=== PATIENT | female | born 1960 ===

== ENCOUNTER → 2017-03-07 | Outpatient (CLI) | payer OTHER ==
--- NOTE | 2017-03-07 12:14 | WOMENS IMAGING REPORT ---
EXAM DESCRIPTION: BILAT SCREENING MAMMO W/CAD COMPLETED DATE/TIME: 03/07/2017 7:29 am REASON FOR STUDY: ROUTINE BILATERAL SCREENING;Z12.31 Z12.31 ENCNTR SCREEN MAMMOGRAM FOR MALIGNANT N EOPLASM OF AYE COMPARISON: 01/26/2016 and 01/22/2015. TECHNIQUE: Standard craniocaudal and mediolateral oblique views of each breast recorded using digita l acquisition. LIMITATIONS: None. FINDINGS: No masses, calcifications or architectural distortion. No areas of suspicion. Read with the assistance of CAD. .[facility] - R2 Cenova Version 1.3 .[facility] - R2 Cenova Version 1.3 .[facility] - R2 Cenova Version 2.4 .[facility] [place] - R2 Cenova Version 2.4 .[facility] - R2 [place] Guide Version 9.2 IMPRESSION: NORMAL MAMMOGRAM. BIRADS 1. BREAST DENSITY: c. The breasts are heterogeneously dense, which may obscure small masses. BIRAD: 1 NEGATIVE RECOMMENDATION: ROUTINE SCREENING COMMENT: The patient has been notified of the results by letter per SA requirements. Additional no tification policies are in place for contacting patient with suspicious or incomplete findings. Quality ID #[id number]: The [employer] recommends an annual screening mammogram for women aged 40 years or over. This facility utilizes a reminder system to ensure that all patients receive reminder letters, and/or direct phone calls for appointments. This includes reminders for routine scr eening mammograms, diagnostic mammograms, or other Breast Imaging Interventions when appropriate. Th is patient will be placed in the appropriate reminder system. The [employer] (ACR) has developed recommendations for screening MRI of the breast s in certain patient populations, to be used in conjunction with mammography. Breast MRI surveillanc e may be appropriate for women with more than 20% lifetime risk of developing breast cancer as deter mined by genetic testing, significant family history of the disease, or history of mantle radiation f or Hodgkins Disease. ACR Practice Guidelines 2008. TECHNICAL DOCUMENTATION: FINDING NUMBER: (1) ASSESSMENT: (1) JOB ID: [id number] [employer]- All Rights Reserved
== END ==
LOC: WI 07:15
PROVIDERS: ATTEND Internal Medicine
DX: Z12.31 Encounter for screening mammogram for malignant neoplasm of breast (principal)
CPT/HCPCS: 77067; G0202

== ENCOUNTER → 2018-03-18 | Outpatient (CLI) | payer OTHER ==
--- NOTE | 2018-03-19 08:14 | WOMENS IMAGING REPORT ---
EXAM DESCRIPTION: 3D SCREENING MAMMO BILAT COMPLETED DATE/TIME: 03/18/2018 2:48 pm REASON FOR STUDY: Z12.31 3D SCREENING MAMMOGRAM BILATERAL Z12.31 ENCNTR SCREEN MAMMOGRAM FOR MALIGN ANT NEOPLASM OF AYE COMPARISON: 03/07/2017 and 01/26/2016. TECHNIQUE: Standard craniocaudal and mediolateral oblique views of each breast recorded using digita l acquisition and breast tomosynthesis. LIMITATIONS: None. FINDINGS: No masses, calcifications or architectural distortion. No areas of suspicion. Read with the assistance of CAD. .[facility] - R2 Cenova Version 1.3 .[facility] - R2 Cenova Version 1.3 .[facility] - R2 Cenova Version 2.4 .[facility] [place] [place] - R2 Cenova Version 2.4 .[facility] - R2 Director Of Group Counseling Program Version 9.2 IMPRESSION: NORMAL MAMMOGRAM. BIRADS 1. BREAST DENSITY: b. There are scattered areas of fibroglandular density. BIRAD: 1 NEGATIVE RECOMMENDATION: ROUTINE SCREENING COMMENT: The patient has been notified of the results by letter per SA requirements. Additional no tification policies are in place for contacting patient with suspicious or incomplete findings. Quality ID #[id number]: The [employer] recommends an annual screening mammogram for women aged 40 years or over. This facility utilizes a reminder system to ensure that all patients receive reminder letters, and/or direct phone calls for appointments. This includes reminders for routine scr eening mammograms, diagnostic mammograms, or other Breast Imaging Interventions when appropriate. Th is patient will be placed in the appropriate reminder system. The [employer] (ACR) has developed recommendations for screening MRI of the breast s in certain patient populations, to be used in conjunction with mammography. Breast MRI surveillanc e may be appropriate for women with more than 20% lifetime risk of developing breast cancer as deter mined by genetic testing, significant family history of the disease, or history of mantle radiation f or Hodgkins Disease. ACR Practice Guidelines 2008. DBT Technology DBT is a type of tomographic mammography. With conventional mammography, overlapping breast tissue ma y make lesions difficult to detect, even with good compression. DBT uses an x-ray tube that rotates a round the breast, taking images at different angles. These images are then combined to create thin sl ices of the breast that the radiologist can view as a 3D reconstruction. The [employer] unit can perform full-field digital mammograms (2D imaging); or DBT (3D imaging); or both, in a combination mode that quickly performs both the mammogram and the tomosynthesis scan while the breast is still compressed. PQRS 6045F: Fluoroscopic imaging is not utilized for breast tomosynthesis. TECHNICAL DOCUMENTATION: FINDING NUMBER: (1) ASSESSMENT: (1) JOB ID: [id number] [employer]- All Rights Reserved Reading location - IP/workstation name: [email or web address]
== END ==
LOC: WI 14:34
PROVIDERS: ATTEND Internal Medicine
DX: Z12.31 Encounter for screening mammogram for malignant neoplasm of breast (principal)
CPT/HCPCS: 77063; 77067

== ENCOUNTER → 2019-03-31 | Outpatient (CLI) | payer OTHER ==
--- NOTE | 2019-03-31 11:45 | WOMENS IMAGING REPORT ---
EXAM DESCRIPTION: 3D SCREENING MAMMO BILAT COMPLETED DATE/TIME: 03/31/2019 8:21 am REASON FOR STUDY: Z12.31 SCREENING MAMMO Z12.31 ENCNTR SCREEN MAMMOGRAM FOR MALIGNANT NEOPLASM OF B RE COMPARISON: Multiple since 2014 EXAM PARAMETERS: Views: Standard craniocaudal and mediolateral oblique views of each breast recorded using digital acquisition and breast tomosynthesis. Read with the assistance of CAD. .[facility] - [employer] Driver/Supervisor Version 9.2 LIMITATIONS: None. FINDINGS: No suspicious masses, suspicious calcifications or architectural distortion. No areas of c oncern. IMPRESSION: NEGATIVE MAMMOGRAM. BIRADS 1. BREAST DENSITY: b. There are scattered areas of fibroglandular density. BIRAD: ASSESSMENT: 1 NEGATIVE RECOMMENDATION: ROUTINE SCREENING Please continue yearly bilateral screening mammography/tomosynthesis in March 2020 COMMENT: The patient has been notified of the results by letter per SA requirements. Additional no tification policies are in place for contacting patient with suspicious or incomplete findings. Quality ID #[id number]: The [employer] recommends an annual screening mammogram for women aged 40 years or over. This facility utilizes a reminder system to ensure that all patients receive reminder letters, and/or direct phone calls for appointments. This includes reminders for routine scr eening mammograms, diagnostic mammograms, or other Breast Imaging Interventions when appropriate. Th is patient will be placed in the appropriate reminder system. TECHNICAL DOCUMENTATION: FINDING NUMBER: (1) ASSESSMENT: (1) JOB ID: [id number] [employer]- All Rights Reserved Reading location - IP/workstation name: [email or web address]
== END ==
LOC: WI 07:20
PROVIDERS: ATTEND Physician Assistant
DX: Z12.31 Encounter for screening mammogram for malignant neoplasm of breast (principal)
CPT/HCPCS: 77063; 77067

== ENCOUNTER → 2020-04-01 | Outpatient (CLI) | payer OTHER ==
--- OUTSIDE RECORDS SUMMARY | 2020-04-01 08:36 | XMS REPORT ---
:1960 Author Organization [facility] Address [address] [address] Care Team Providers Name Role Phone Kash Nowak Primary Care Physician Unavailable Kash Nowak MD Attending Clinician Unavailable Cody Attending Clinician Unavailable Allergies, Adverse Reactions, Alerts Allergy Allergy Status Severity Reaction(s) Onset Inactive Treating C jaunments Name Type Date Date Clinician BEE STING Drug Active U 2017-11 KIT allergy -20 00:00:0 0 Bee sting Bee sting Active Swelling Medications Ordered Filled Start Stop Current Ordering Indication Dosage Frequency Signature Comments Components Medication Medication Date Date Medication? Clinician (SIG) Name Name Florenciabiome 2019-03 Yes Abel Florenciabio High 2-15 Boles High Potency 00:00: D.O. Potency Oral 00 Oral Capsule Capsule one tab po bid with meals Quantity: 180 Refills: 2 Elvi DAbel Owen Start : 0Active valACYclovi 2019-03 Yes Abel 1 QD valACYclov r HCl - 500 2-15 Boles ir HCl - MG Oral 00:00: D.O. 500 MG Tablet 00 Oral Tablet TAKE 1 TABLET DAILY Quantity: 30 Refills: 0 Abel Boles D.O. Start : 0Active Abreva 10 % 2019-03 Yes Abel QD Abreva 10 External 2-15 Boles % External Cream 00:00: D.O. Cream 00 APPLY AND RUB IN 5 TIMES DAILY UNTIL HEALED. Quantity: 1 Refills: 0 Abel Boles D.O. Start : 0Active 2 GM Pump Btl BD TB 2019-03 Yes Luis Hewitt BD TB Syringe 27G 2-14 Eliu Syringe X 1/2" 1 ML 14:12: 27G X 1/2" 08 1 ML USE DIRECTED Quantity: 12 Refills: 0 Luis Nowak MD Start : 0Active Cyanocobala 2019-03 Yes Luis Hewitt Cyanocoba l min 1000 1-16 Eliu medina 1000 MCG/ML 07:52: MD MCG/ML Injection 23 Injection Solution Solution INJECT 1ML INTRAMUSCU LARLY ONCE A MONTH. DISCARD 28 DAYS AFTER FIRST USE Quantity: 3 Refills: 3 Luis Nowak MD Start : 0Active Atorvastati 2019-03 Yes Yary Atorvastat n Calcium 1-16 Ivette BERGER in Calcium 20 MG Oral 07:46: 20 MG Oral Tablet 03 Tablet TAKE 1 TABLET AT BEDTIME. PATIENT NEEDS TO SCHEDULE APPOINTMEN T WITH AB ANTONIO Quantity: 90 Refills: 1 Yary Arevalo Start : 0Active Banophen 25 2019-03 Yes Abel Banophen MG Oral 0-26 Boles 25 MG Oral Capsule 11:12: D.O. Capsule 09 TAKE 1 CAPSULE BY MOUTH EVERY NIGHT AT BEDTIME Quantity: 30 Refills: 1 Abel Boles D.O. Start : 0Active Azithromyci 2019-03 Yes Abel Azithromyc n 250 MG 0-23 Boles in 250 MG Oral Tablet 00:00: D.O. Oral 00 Tablet TAKE 2 TABLETS ON DAY 1 THEN TAKE 1 TABLET A DAY FOR 4 DAYS. Quantity: 1 Refills: 0 Abel Boles D.O. Start : 0Active 6 Tablet Pack Esomeprazol 2019-0 Yes Abel QD Esomeprazo e Magnesium 9-25 Boles le 40 MG Oral 00:00: D.O. Magnesium Capsule 00 40 MG Oral Delayed Capsule Release Delayed Release TAKE 1 CAPSULE DAILY NEEDED. Quantity: 90 Refills: 3 Abel Boles D.O. Start : 0Active Banophen 25 2020-0 No Abel Banophen MG Oral 8-13 Boles 25 MG Oral Capsule 08:56: D.O. Capsule 30 TAKE 1 CAPSULE AT BEDTIME. Quantity: 30 Refills: 1 Abel Boles D.O. Start : 0Active Atorvastati 2019-0 No Yary Atorvastat n Calcium 8-11 Ivette BERGER in Calcium 20 MG Oral 14:00: 20 MG Oral Tablet 31 Tablet Take 1 tablet at bedtime Quantity: 90 Refills: 0 Yary Arevalo Start : 0Active Triamterene 2020-0 Yes Luis Hewitt 1 QD Triamtere n -HCTZ 09-07 Eliu e-HCTZ 37.5-25 MG 14:12: 37.5-25 MG Oral Tablet 00 Oral Tablet TAKE 1 TABLET DAILY Quantity: 90 Refills: 3 Eliu DAN, Luis Hewitt Start : 0Active Celecoxib 2020-0 Yes Abel Celecoxib 100 MG Oral 5-20 Boles 100 MG Capsule 00:00: D.O. Oral 00 Capsule TAKE 1 CAPSULE PO every 3 days NEEDED. Quantity: 90 Refills: 3 Abel Boles D.O. Start : 0Active Melatonin 1 2020-0 Yes Abel Melatonin MG Oral 5-20 Boles 1 MG Oral Capsule 00:00: D.O. Capsule 00 TAKE 1 CAPSULE AT BEDTIME NEEDED. Quantity: 1 Refills: 0 Abel Boles D.O. Start : 0Active diphenhydrA 2020-0 Yes Abel diphenhydr MINE HCl - 5-20 Boles AMINE HCl 25 MG Oral 00:00: D.O. - 25 MG Capsule 00 Oral Capsule TAKE 1 CAPSULE AT BEDTIME. Quantity: 30 Refills: 1 Abel Boles D.O. Start : 0Active Cosentyx 2020-0 No Abel Cosentyx Sensoready 4-16 Elvi Sensoready Pen 150 00:00: D.O. Pen 150 MG/ML 00 MG/ML Subcutaneou Subcutaneo s Solution us Auto-inject Solution or Auto-injec tor inject 150mg sq dose every 4 weeks Quantity: 1 Refills: 6 Abel Boles D.O. Start : 0Active Milliliter Cosentyx 2020-0 No Abel Cosentyx Sensoready 4-16 Elvi Sensoready Pen 150 00:00: D.O. Pen 150 MG/ML 00 MG/ML Subcutaneou Subcutaneo s Solution us Auto-inject Solution or Auto-injec tor inject 150mg sq dose every 2 weeks Quantity: 2 Refills: 6 Abel Boles D.O. Start : 0Active Milliliter Atorvastati 2020-0 No Gabriela Atorvastat n Calcium 05-09 Lj BERGER in Calcium 20 MG Oral 00:00: 20 MG Oral Tablet 00 Tablet TAKE 1 TABLET AT BEDTIME. Quantity: 30 Refills: 3 Gabriela Baeza Start : 0Active Metoprolol Yes Gabriela Metoprolol Succinate 2- Lj BERGER Succinate ER 25 MG 00:00: ER 25 MG Oral Tablet 00 Oral Extended Tablet Release 24 Extended Hour Release 24 Hour TAKE 1 TABLET BY MOUTH EVERY DAY Quantity: 90 Refills: 3 Gabriela Baeza Start : 0Active Cyanocobala 2018-03 No Luis Hewitt Cyanocoba l min 1000 2 Eliu medina 1000 MCG/ML 11:54: MCG/ML Injection 47 Injection Solution Solution INJECT 1ML INTRAMUSCU LARLY ONCE A MONTH. DISCARD 28 DAYS AFTER FIRST USE Quantity: 3 Refills: 3 Luis Nowak MD Start : 9Active Famciclovir 2018-03 Yes Luis Hewitt Famciclov i 500 MG Oral 0- Eliu r 500 MG Tablet 08:01: Oral 18 Tablet TAKE 1 TABLET 3 TIMES A DAYAS NEEDED FOR COLD SORES Quantity: 90 Refills: 1 Luis Nowak MD Start : 9Active BD TB No Luis Hewitt BD TB Syringe 27G 8-03 Eliu Syringe X 1/2" 1 ML 00:00: 27G X 1/2" 00 1 ML USE DIRECTED. 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 Abnormal Abnormal Problem Active Pap smear Pap smear of cervix of cervix Adenomatous Adenomatous Problem Active polyp of polyp of colon colon Arthralgia Arthralgia Problem Active of multiple of multiple joints joints Benign Benign Problem Inactiv colonic colonic e polyp polyp Dysmenorrhe Dysmenorrhe Problem Inactiv a a e Visit for Visit for Problem Inactiv screening screening e mammogram mammogram Hepatitis C Hepatitis C Problem Inactiv antibody antibody e test test positive positive Menopause Menopause Problem Active Other Other Problem Active idiopathic idiopathic scoliosis, scoliosis, lumbar lumbar region region Normal Normal Problem Inactiv physical physical e exam, exam, routine routine OA OA Problem Active (osteoarthr (osteoarthr itis) itis) Reactive Reactive Problem Active airway airway disease disease Carpal Carpal Problem Active tunnel tunnel syndrome syndrome Essential Essential Problem Inactiv hypertensio hypertensio e n n Tachycardia Tachycardia Problem Inactiv e Obesity Obesity Problem Active Sinus Sinus Problem Inactiv tachycardia tachycardia e Chest Chest Problem Inactiv pressure pressure e Shortness Shortness Problem Inactiv of breath of breath e Cataracts, Cataracts, Problem Active bilateral bilateral Adverse Adverse Problem Inactiv reaction to reaction to e drug that drug that acts acts primarily primarily on skin on skin Ankylosing Ankylosing Problem Active spondylitis spondylitis Anemia Anemia Problem Active History of History of Problem Resolve Hip joint Hip joint d replacement replacement status status Procedures Procedure Date / Time Performed Performing Clinician Dayana foster L - HSV, IgM I/II Combination 2020-02-24 00:00:00 CBC 2020-02-24 00:00:00 CMP(Complete Metabolic Panel) 2020-02-24 00:00:00 CRP 2020-02-24 00:00:00 Uric Acid 2020-02-24 00:00:00 Sed Rate 2020-02-24 00:00:00 TSH 2020-02-24 00:00:00 Direct LDL 2020-02-24 00:00:00 MG-Mammogram Screening (Bilateral) 2020-02-16 00:00:00 MG-Breast Tomosynthesis(3D) 2020-02-16 00:00:00 Screening (Bilateral) CRP 2019-12-05 00:00:00 CMP(Complete Metabolic Panel) 2019-12-05 00:00:00 CBC 2019-12-05 00:00:00 Sed Rate 2019-12-05 00:00:00 Urinalysis 2019-12-05 00:00:00 L - SARS-CoV-2 Antibody, IgG 2019-12-05 00:00:00 Urinalysis 2019-07-30 00:00:00 CRP 2019-07-30 00:00:00 CMP(Complete Metabolic Panel) 2019-07-30 00:00:00 CBC 2019-07-30 00:00:00 Sed Rate 2019-07-30 00:00:00 OFFICE CONSULTATION 2017-11-29 09:45:00 Section Tonsillectomy Results Test Description Test Time Test Comments Text Results Atomic Results Result Comments CBC 2020-02-24 09:21:00 Test Item Value Reference Range Comments White Blood Cell (test code = White Blood Cell) 7.3 K/uL 3.5-11.1 Red Blood Cell (test code = Red Blood Cell) 4.39 {M/uL} 3.69 -4.87 Hemoglobin (test code = Hemoglobin) 13.4 g/dL 11.4-14.4 Hematocrit (test code = Hematocrit) 40 % 33-41 Mean Corpuscular Volume (test code = Mean Corpuscular Volume) 90 .2 fL 79.0-95.0 Mean Corpuscular Hemoglobin (test code = Mean Corpuscular 30.5 p g/mL 27.0-33.0 Hemoglobin) Mean Corpuscular Hemoglobin Concentration (test code = Mean 33.8 g/dL 33.5-35.5 Corpuscular Hemoglobin Concentration) Red Cell Distribution Width (test code = Red Cell 12.3 % 12.0-15.0 Distribution Width) Platelet (test code = Platelet) 359 K/uL 130-353 Mean Platelet Volume (test code = Mean Platelet Volume) 8.2 fL 7.5-10.7 Neutrophil Count, absolute (test code = Neutrophil Count, 4.9 K/ uL 1.9-7.2 absolute) Neutrophil Count Percentage (test code = Neutrophil Count 67.3 % 43.0-72.0 Percentage) Lymphocyte Count, absolute (test code = Lymphocyte Count, 1.8 K/ uL 1.1-2.7 absolute) Lymphocyte Count Percentage (test code = Lymphocyte Count 24.5 % 17.0-44.0 Percentage) Monocyte Count, absolute (test code = Monocyte Count, 0.4 K/uL 0.3-0.8 absolute) Monocyte Count Percentage (test code = Monocyte Count 4.8 % 4.5-12.4 Percentage) Eosinophil Count, absolute (test code = Eosinophil Count, 0.2 K/ uL 0.0-0.5 absolute) Eosinophil Count Percentage (test code = Eosinophil Count 2.1 % 0.7-7.8 Percentage) Basophil Count, absolute (test code = Basophil Count, 0.1 K/uL 0.0-0.1 absolute) Basophil Count Percentage (test code = Basophil Count 0.7 % 0.2-1.1 Percentage) Nucleated Red Blood Cell, absolute (test code = Nucleated Re d 0.00 K/uL 0.00-0.00 Blood Cell, absolute) Nucleated Red Blood Cell, percentage (test code = Nucleated 0.00 % 0.00-0.00 Red Blood Cell, percentage) Sed [id number] 09:21:00 Test Item Value Reference Range Comments Erythrocyte Sedimentation Rate (test code = 16 {mm/hr} 0-30 Erythrocyte Sedimentation Rate) HSV, IgM I/II [id number] 09:21:00 Test Item Value Reference Range Comments HSV, IgM I/II Combination (test <0.91 0.00-0.90 code = 65517-4) Negative <0.91 Equivocal 0.91 - 1.09 Positive >1.09 [facility] performed at: [] [address], [address], , Global Climate Change Analyst: Rose Bass [facility](Complete Metabolic Panel)2020-02-24 09:20:00 Test Item Value Reference Range Comments Glucose (test code = Glucose) 101 mg/dL 74-106 Sodium (test code = Sodium) 143 mmol/L 135-145 Potassium (test code = Potassium) 4.0 mmol/L 3.5-5.3 Chloride (test code = Chloride) 101 mmol/L 98-107 CO2 (test code = CO2) 32 mmol/L 22-30 Creatinine, serum (test code = Creatinine, serum) 0.60 mg/dL 0.10-1.04 Glomerular Filtration Rate (test code = >60 >60 Glomerular Filtration Rate) Glomerular Filtration Rate AA (test code = >60 >60 Glomerular Filtration Rate AA) Blood Urea Nitrogen (test code = Blood Urea 10 mg/dL 7-17 Nitrogen) Calcium (test code = Calcium) 9.5 mg/dL 8.4-10.5 Phosphorus (test code = Phosphorus) 4.1 mg/dL 2.5-4.5 Total Protein (test code = Total Protein) 7.3 g/dL 6.3-8. 2 Albumin (test code = 41491-6) 4.4 g/dL 3.5-5.0 Total Bilirubin (test code = Total Bilirubin) 0.5 mg/dL 0. 2-1.3 Bilirubin, unconj (test code = Bilirubin, unconj) 0.4 mg/dL 0.0-1.1 Bilirubin, Direct (test code = Bilirubin, Direct) 0.1 mg/dL 0.0-0.4 Alkaline Phosphatase (test code = Alkaline 175 U/L 0 Phosphatase) Alanine Transaminase (test code = Alanine 44 U/L 0-35 Transaminase) Aspartate Aminotransferase (test code = Aspartate 42 U/L 3-36 Aminotransferase) [id number] 09:20:00 Test Item Value Reference Range Comments C-Reactive Protein (test code = C-Reactive Protein) 15 mg/L <10 Uric [id number] 09:20:00 Test Item Value Reference Range Comments Uric Acid (test code = Uric Acid) 5.7 mg/dL 2.5-6.2 Thyroid Stimulating [id number] 09:20:00 Test Item Value Reference Range Comments Thyroid Stimulating Hormone (test code = 2.18 {mIU/mL} 0.46-4. 68 Thyroid Stimulating Hormone) Direct [id number] 09:20:00 Test Item Value Reference Range Comments Low Density Lipoprotein (test code = 2089-1) 123 mg/dL 03-12 30 [id number] 15:49:00 Test Item Value Reference Range Comments White Blood Cell (test code = White Blood Cell) 9.5 K/uL 3.5-11.1 Red Blood Cell (test code = Red Blood Cell) 4.46 {M/uL} 3.69 -4.87 Hemoglobin (test code = Hemoglobin) 13.7 g/dL 11.4-14.4 Hematocrit (test code = Hematocrit) 41 % 33-41 Mean Corpuscular Volume (test code = Mean 91.0 fL 79.0-9 5.0 Corpuscular Volume) Mean Corpuscular Hemoglobin (test code = Mean 30.7 pg/mL 27 .0-33.0 Corpuscular Hemoglobin) Mean Corpuscular Hemoglobin Concentration (test 33.7 g/dL 33.5-35.5 code = Mean Corpuscular Hemoglobin Concentration) Red Cell Distribution Width (test code = Red 11.9 % 12. 0-15.0 Cell Distribution Width) Platelet (test code = Platelet) 367 K/uL 130-353 Mean Platelet Volume (test code = Mean Platelet 8.3 fL 7.5-10.7 Volume) Neutrophil Count, absolute (test code = 6.5 K/uL 1.9-7.2 Neutrophil Count, absolute) Neutrophil Count Percentage (test code = 69.2 % 43.0-72 .0 Neutrophil Count Percentage) Lymphocyte Count, absolute (test code = 2.1 K/uL 1.1-2.7 Lymphocyte Count, absolute) Lymphocyte Count Percentage (test code = 22.6 % 17.0-44 .0 Lymphocyte Count Percentage) Monocyte Count, absolute (test code = Monocyte 0.6 K/uL 0 .3-0.8 Count, absolute) Monocyte Count Percentage (test code = Monocyte 5.9 % 4.5-12.4 Count Percentage) Eosinophil Count, absolute (test code = 0.1 K/uL 0.0-0.5 Eosinophil Count, absolute) Eosinophil Count Percentage (test code = 1.5 % 0.7-7.8 Eosinophil Count Percentage) Basophil Count, absolute (test code = Basophil 0.1 K/uL 0 .0-0.1 Count, absolute) Basophil Count Percentage (test code = Basophil 0.5 % 0.2-1.1 Count Percentage) Nucleated Red Blood Cell, absolute (test code = 0.00 K/uL 0.00-0.00 Nucleated Red Blood Cell, absolute) Nucleated Red Blood Cell, percentage (test code 0.00 % 0.00-0.00 = Nucleated Red Blood Cell, percentage) [id number] 15:49:00 Test Item Value Reference Range Comments Urine Color (test code = Urine Color) LT. YELLOW Yellow Urine Clarity (test code = Urine Clarity) CLEAR Clear Urine Glucose (test code = Urine Glucose) NEGATIVE Negati ve Urine Ketones (test code = Urine Ketones) NEGATIVE Negati ve Urine Bilirubin (test code = Urine Bilirubin) NEGATIVE Ne gative Urine Specific [place] (test code = Urine 1.020 1.010- 1.030 Specific [place]) Urine Blood (test code = Urine Blood) NEGATIVE Negative Urine pH (test code = Urine pH) 6.0 5.0-8.0 Urine Protein (test code = Urine Protein) NEGATIVE Negati ve Urine Urobilinogen (test code = Urine 0.2 Eu/dl 0.2 Urobilinogen) Urine Nitrites (test code = Urine Nitrites) NEGATIVE Nega tive Urine Leukocytes (test code = Urine Leukocytes) NEGATIVE Negative Sed [id number] 15:49:00 Test Item Value Reference Range Comments Erythrocyte Sedimentation Rate (test code = 26 {mm/hr} 0-30 Erythrocyte Sedimentation Rate) [id number] 15:49:00 Test Item Value Reference Range Comments C-Reactive Protein (test code = C-Reactive Protein) 14 mg/L <10 CMP(Complete Metabolic Panel)2019-12-05 15:49:00 Test Item Value Reference Range Comments Glucose (test code = Glucose) 107 mg/dL 74-106 Sodium (test code = Sodium) 139 mmol/L 135-145 Potassium (test code = Potassium) 3.6 mmol/L 3.5-5.3 Chloride (test code = Chloride) 98 mmol/L 98-107 CO2 (test code = CO2) 28 mmol/L 22-30 Creatinine, serum (test code = Creatinine, serum) 0.80 mg/dL 0.10-1.04 Glomerular Filtration Rate (test code = >60 >60 Glomerular Filtration Rate) Glomerular Filtration Rate AA (test code = >60 >60 Glomerular Filtration Rate AA) Blood Urea Nitrogen (test code = Blood Urea 18 mg/dL 7-17 Nitrogen) Calcium (test code = Calcium) 9.8 mg/dL 8.4-10.5 Phosphorus (test code = Phosphorus) 4.1 mg/dL 2.5-4.5 Total Protein (test code = Total Protein) 7.5 g/dL 6.3-8. 2 Albumin (test code = 97337-1) 4.5 g/dL 3.5-5.0 Total Bilirubin (test code = Total Bilirubin) 0.6 mg/dL 0. 2-1.3 Bilirubin, unconj (test code = Bilirubin, unconj) 0.4 mg/dL 0.0-1.1 Bilirubin, Direct (test code = Bilirubin, Direct) 0.2 mg/dL 0.0-0.4 Alkaline Phosphatase (test code = Alkaline 172 U/L 20-15 0 Phosphatase) Alanine Transaminase (test code = Alanine 33 U/L 0-35 Transaminase) Aspartate Aminotransferase (test code = Aspartate 32 U/L 3-36 Aminotransferase) L - SARS-CoV-2 Antibody, [id number] 15:49:00 Test Item Value Reference Range Comments SARS-CoV-2 Antibody, IgG Comment Negative See Eur oimmun SARS-CoV-2 Ab, IgG (test code = SARS-CoV-2 Antibody, IgG) Euroimmun SARS-CoV-2 Ab, IgG Negative Negative Thi s sample does not contain (test code = Euroimmun detectabl e SARS-CoV-2 SARS-CoV-2 Ab, IgG) IgGantibodie s. This negative result does not rule out SARS-CoV-2 infec tion. Correlation with epidemiologic risk factorsand other clinical and laboratory f indings is recommended.Sero logic results should not be us ed as the sole basis todiagnose or exclude recent SARS-CoV- 2 infection.This assay was perfor med using the Euroimmun SARS-C oV-2 IgGassay. [facility] performed at: [BN] [address], [address], , Global Climate Change Analyst: Rose Bass MDTest(s) [id number] Antibody, IgMhas not been reviewed by the Food and Drug Administration.Test(s) [id number] Antibody, IgG; [id number] SARS-CoV-2 Ab, IgGhas not been FDA cleared or approved. This test hasbeen authorized by FDA under an Emergency UseAuthorization (EUA). This test is only authorized for theduration of the declaration that circumstances existjustifying the authorization of emergency u se of in vitrodiagnostics for detection and/or diagnosis of COVID-19under Section 564(b)(1) of the Act, 21 U.S.C. 360bbb-3(b)(1), unless the authorization is terminated orrevoked sooner. This test has been authorized only fordetecting the presence of antibodies against SARS-CoV-2,not for any other viruses or pathogens.[facility] - SARS-CoV-2 Antibody, [id number] 15:49:00 Test Item Value Reference Range Comments SARS-CoV-2 Antibody, IgM Negative Negative This mple does not contain (test code = SARS-CoV-2 detectab le SARS-CoV-2 Antibody, IgM) IgMantibodies. T his negative result does not rule out SARS-CoV-2 infec tion. Correlation with epidemiolog ic risk factorsand other clinical a nd laboratory findings is allan mmended.Serologic results should n ot be used as the sole basis todia gnose or exclude recent SARS-CoV- 2 infection. [facility] performed at: [BN] [facility], [place], [address], , Global Climate Change Analyst: Rose Bass MDTest(s) [id number] Antibody, IgMhas not been reviewed by the Food and Drug Administration.Test(s) [id number] Antibody, IgG; [id number] SARS-CoV-2 Ab, IgGhas not been FDA cleared or approved. This test hasbeen authorized by FDA under an Emergency UseAuthorization (EUA). This test is only authorized for theduration of the declaration that circumstances existjustifying the authorization of emergency u se of in vitrodiagnostics for detection and/or diagnosis of COVID-19under Section 564(b)(1) of the Act, 21 U.S.C. 360bbb-3(b)(1), unless the authorization is terminated orrevoked sooner. This test has been authorized only fordetecting the presence of antibodies against SARS-CoV-2,not for any other viruses or pathogens.L - SARS-CoV-2 Antibody,[id number] 15:49:00 Test Item Value Reference Range Comments SARS-CoV-2 Antibody,IgA Negative Negative This anna ple does not contain (test code = SARS-CoV-2 detectab le SARS-CoV-2 Antibody,IgA) IgAantibodies. T his negative result does not rule out SARS-CoV-2 infec tion. Correlation with epidemiolog ic risk factorsand other clinical a nd laboratory findings is allan mmended.Serologic results should n ot be used as the sole basis todia gnose or exclude recent SARS-CoV- 2 infection. [facility] performed at: [BN] [facility], [address] [place] [address], [place], [address], , Global Climate Change Analyst: Rose Bass MDTest(s) [id number] Antibody, IgAhas not been reviewed by the Food and Drug Administration.HSV, IGM I/II COMBINATION Test Item Value Reference Range Comments HSV, IGM I/II COMBINATION (test code = 98440-0) <0.91 RATIO 0.00-0.90 Assessments Condition Name Status Diagnosis Date Treating Clinici an Carpal tunnel syndrome Active Reactive airway disease Active Anemia Active Ankylosing spondylitis Active OA (osteoarthritis) Active Ankylosing polyarthritis Active Hepatitis C antibody test positive Active OA (osteoarthritis) Active Abnormal Pap smear of cervix Active Normal physical exam, routine Active Encounter for screening for malignant Active neoplasm of colon Benign colonic polyp Active Carpal tunnel syndrome Active Other idiopathic scoliosis, lumbar region Active Reactive airway disease Active Hip joint replacement status Active Anemia Active Dysmenorrhea Active Menopause Active Ankylosing spondylitis Active Hepatitis C antibody test positive Active Adenomatous polyp of colon Active Cataracts, bilateral Active OA (osteoarthritis) Active Arthralgia of multiple joints Active Ankylosing polyarthritis Active Normal physical exam, routine Active Carpal tunnel syndrome Active Reactive airway disease Active OA (osteoarthritis) Active Essential hypertension Active Tachycardia Active Obesity Active Sinus tachycardia Active Chest pressure Active Shortness of breath Active Ankylosing polyarthritis Active Cataracts, bilateral Active Ankylosing polyarthritis Active Hip joint replacement status Active Anemia Active Ankylosing spondylitis Active Carpal tunnel syndrome Active Hip joint replacement status Active Anemia Active Obesity Active Adverse reaction to drug that acts primarily Active on skin Cough with exposure to COVID-19 virus Active Ankylosing spondylitis Active Normal physical exam, routine Active Benign colonic polyp Active History of essential hypertension Active History of screening mammography Active History of sinus tachycardia Active Chest pressure Active Reactive airway disease Active Hip joint replacement status Active Hepatitis C antibody test positive Active Recurrent cold sores Active OA (osteoarthritis) Active History of dysmenorrhea Active Arthralgia of multiple joints Active Encounter for screening for malignant Active neoplasm of colon Adverse reaction to drug that acts primarily Active on skin Cough with exposure to COVID-19 virus Active Arthralgia of multiple joints Active Chronic use of steroids Active Anemia Active Ankylosing polyarthritis Active Cataracts, bilateral Active OA (osteoarthritis) Active Ankylosing spondylitis Active Carpal tunnel syndrome Active Reactive airway disease Active Hip joint replacement status Active Intermittent claudication Active Hepatitis C antibody test positive Active Cellulitis of leg Active Adenomatous polyp of colon Active Encounter for preventive health examination Active Adverse reaction to drug that acts primarily Active on skin Cough with exposure to COVID-19 virus Active Abnormal Pap smear of cervix Active Normal physical exam, routine Active Encounter for screening for malignant Active neoplasm of colon Benign colonic polyp Active Carpal tunnel syndrome Active Other idiopathic scoliosis, lumbar region Active Reactive airway disease Active Anemia Active Intermittent claudication Active Dysmenorrhea Active Menopause Active Adenomatous polyp of colon Active Thrombophlebitis leg Active Combined forms of age-related cataract, Active bilateral Other corneal scars and opacities Active Lattice degeneration of retina, bilateral Active Vitreous degeneration, bilateral Active Abnormal Pap smear of cervix Active Normal physical exam, routine Active Encounter for screening for malignant Active neoplasm of colon Benign colonic polyp Active Carpal tunnel syndrome Active Other idiopathic scoliosis, lumbar region Active Reactive airway disease Active Anemia Active Intermittent claudication Active Dysmenorrhea Active Menopause Active Adenomatous polyp of colon Active Thrombophlebitis leg Active Encounters Start End Encounter Admission Attending Care Care Encounter Date/Time Date/Time Type Type Clinicians Facility Department ID 2020-02-24 2020-02-24 Appointment [facility] [id number] 08:30:00 08:30:00 ; Abel Boles D.O. 2019-12-05 2019-12-05 [facility] [id number] 15:00:00 15:00:00 ; Abel Boles D.O. 2019-07-30 2019-07-30 Appointment [facility] [id number] 15:45:00 15:45:00 ; Abel Boles D.O. 2019-05-06 2019-05-06 Appointment [facility] C[facility] [id number] 15:30:00 15:30:00 ; Abel Boles D.O. 2019-05-06 2019-05-06 Appointment [facility] [id number] 12:00:00 12:00:00 ; Vincenzo Galindo 2019-04-21 2019-04-21 [facility] [id number] 15:30:00 15:30:00 ; Gabriela Calhoun PA 2019-03-31 2019-03-31 Appointment [facility] [id number] 10:00:00 10:00:00 ; ARELY foster, Clinical WB 2019-03-31 2019-03-31 Appointment [facility] [id number] 09:50:00 09:50:00 ; ARELY foster, Lab WB 2019-03-31 2019-03-31 Appointment [facility] [id number] 08:30:00 08:30:00 ; ARELY foster, Echo 2019-03-07 2019-03-07 Appointment [facility] [id number] 14:00:00 14:00:00 ; Gabriela Calhoun PA 2019-01-22 2019-01-22 Appointment [facility] [id number] 15:45:00 15:45:00 ; Abel Boles D.O. 2018-08-06 2018-08[facility] [id number] 15:30:00 15:30:00 ; Luis Solorio MD 2018-07-22 2018-07-22 Appointment [facility] [id number] 15:45:00 15:45:00 ; Abel Boles D.O. 2018-06-27 2018-06-27 Appointment [facility] [id number] 10:45:00 10:45:00 ; Aurora Jaimes 2018-06-14 2018-06-14 [facility] 21 [id number] 14:00:00 14:00:00 ; Luis Solorio MD 2018-06-04 2018-06-04 Appointment [facility], [facility] 21 [id number] 13:30:00 13:30:00 ; Luis Solorio MD 2018-04-30 2018-04-30 Appointment [facility] [id number] 14:15:00 14:15:00 ; Abel Boles D.O. 2018-03-28 2018-03-28 Appointment [facility] [id number] 13:30:00 13:30:00 ; Abel Boles D.O. 2018-01-28 2018-01-28 Appointment Eliu [facility] [id number] 09:00:00 09:00:00 ; Luis Solorio MD 2017-11-29 2017-11-29 Outpatient [facility]ATR[facility] Ross [id number] 09:45:00 09:45:00 [id number] [id number] 2017-11-07 2017-11-07 [facility] [id number] 11:15:00 11:15:00 ; Luis Solorio MD Family History Family Member Diagnosis Comments Start Date Stop Date Grandmother Family history of diabetes mellitus Mother Family history of diabetes mellitus Immunizations Ordered Immunization Filled Immunization Date Status Commen ts Refusal Reason Name Name Fluzone Quadrivalent 2019-01-10 Completed 0.5 ML Intramuscular 00:00:00 Suspension Prefilled Syringe Afluria Intramuscular 2014-01-08 Completed Suspension 00:00:00 HPV (Gardasil) 2013-07-15 Completed 10:47:00 HPV (Gardasil) 2013-03-17 Completed 16:33:00 HPV (Gardasil) 2013-01-14 Completed 15:09:00 Fluvirin INJ 2013-01-09 Completed 00:00:00 Influenza 2012-02-05 Completed 00:00:00 Social History Smoking Status Start Date Stop Date Ex-smoker (finding) Vital Signs Vital Name Observation Time Observation Value Comments Systolic blood pressure 2020-02-24 08:43:00 122 mm[Hg] Diastolic blood pressure 2020-02-24 08:43:00 76 mm[Hg] Body height 2020-02-24 08:43:00 65 [in_us] Weight 2020-02-24 08:43:00 232.25 [lb_av] Body mass index (BMI) [Ratio] 2020-02-24 08:43:00 38.65 kg/m2 Body temperature 2020-02-24 08:43:00 96.8 [degF] Heart Rate 2020-02-24 08:43:00 86 /min Respiratory rate 2020-02-24 08:43:00 18 /min O2 SAT 2020-02-24 08:43:00 98 % Source: Systolic blood pressure 2019-12-05 14:30:00 130 mm[Hg] Diastolic blood pressure 2019-12-05 14:30:00 82 mm[Hg] Body height 2019-12-05 14:30:00 65 [in_us] Weight 2019-12-05 14:30:00 230.375 [lb_av] Body mass index (BMI) [Ratio] 2019-12-05 14:30:00 38.34 kg/m2 Body temperature 2019-12-05 14:30:00 97.8 [degF] Heart Rate 2019-12-05 14:30:00 88 /min Respiratory rate 2019-12-05 14:30:00 17 /min O2 SAT 2019-12-05 14:30:00 98 % Source: [facility] Discharge Instructions NameDatesDetailsInstructions not documentedNameDatesDetailsInstructions not documented
--- NOTE | 2020-04-01 10:00 | WOMENS IMAGING REPORT ---
EXAM DESCRIPTION: 3D SCREENING MAMMO BILAT IMAGES COMPLETED DATE/TIME: 04/01/2020 9:05 am REASON FOR STUDY: ROUTINE BILATERAL SCREENING;Z12.31 Z12.31 ENCNTR SCREEN MAMMOGRAM FOR MALIGNANT N EOPLASM OF AYE COMPARISON: 03/31/2019, 03/18/2018, 03/07/2017 EXAM PARAMETERS: Standard craniocaudal and mediolateral oblique views of each breast recorded using digital acquisition and breast tomosynthesis. Read with the assistance of CAD. .[facility] - [employer] Representative Version 9.2 LIMITATIONS: None. FINDINGS: Findings present which are benign by mammographic criteria. No suspicious masses, calcific ations or architectural distortion. Pertinent benign findings: Circumscribed nodular densities seen bilaterally demonstrate long-standing stability. Benign mammographic findings may include one or more of the following: Smooth masses, popcorn/rim/coa rse calcifications, asymmetries, post-procedure changes, and lesions with long-standing stability. IMPRESSION: BENIGN MAMMOGRAPHIC FINDINGS. BIRADS 2 BREAST DENSITY: b. There are scattered areas of fibroglandular density. BIRAD: ASSESSMENT: 2 BENIGN FINDING(S) RECOMMENDATION: ROUTINE SCREENING COMMENT: The patient has been notified of the results by letter per MQSA requirements. Additional no tification policies are in place for contacting patient with suspicious or incomplete findings. Quality ID #[id number]: The [employer] recommends an annual screening mammogram for women aged 40 years or over. This facility utilizes a reminder system to ensure that all patients receive reminder letters, and/or direct phone calls for appointments. This includes reminders for routine scr eening mammograms, diagnostic mammograms, or other Breast Imaging Interventions when appropriate. Th is patient will be placed in the appropriate reminder system. TECHNICAL DOCUMENTATION: FINDING NUMBER: (1) ASSESSMENT: (1) JOB ID: [id number] 2010 [employer]- All Rights Reserved Reading location - IP/workstation name: [email or web address]
== END ==
LOC: WI 08:33
PROVIDERS: ATTEND Internal Medicine
DX: Z12.31 Encounter for screening mammogram for malignant neoplasm of breast (principal)
CPT/HCPCS: 77063; 77067